=== PATIENT | female | born 1975 ===

== ENCOUNTER 2019-08-19 09:30 | Inpatient (IN) | payer OTHER ==
[2019-08-19] MEDS ORDERED: LOSARTAN-HCTZ1 EACH PO (09:53)
[2019-08-19] MEDS ORDERED: [UNRECOGNIZED DRUG - OTHER] PO (09:53)
== END 2019-08-28 11:11 | disposition home or self-care (01) | DRG 658 ==
LOC: O/R 09:30 → SURH 08-24 07:00 → SURG 08-25 14:46
PROVIDERS: ADMIT Urology
PROC: 0TB00ZZ Excision of Right Kidney, Open Approach (ICD-10-PCS; principal; 2019-08-24 07:00)
DX: C64.1 Malignant neoplasm of right kidney, except renal pelvis (principal)